=== PATIENT | male | born 1945 | race Caucasian/White ===

== ENCOUNTER 2018-04-09 07:43 | Day surgery (SDC) | payer MEDICARE ==
[~2018-04-09] VITALS: Ht 190.5 cm; Wt 112.4 kg
[2018-04-09] MEDS ORDERED: SODIUM CHLORIDE 0.9% 1,000 ML IV SCH (09:02)
[2018-04-09 09:06] VITALS: BP 143/84
[2018-04-09] MEDS ORDERED: CIPROFLOXACIN/PMX 400MG/200ML 200 ML IV ONE (09:30)
[2018-04-09] MEDS ORDERED: PRAMIPEXOLE PO (09:35)
[2018-04-09] MEDS ORDERED: VITAMIN D PO (09:35)
[2018-04-09] MEDS ORDERED: LEVO100T5 PO (09:35)
[2018-04-09] MEDS ORDERED: FERROUS SULFATE PO (09:35)
[2018-04-09] MEDS ORDERED: METF500T17 PO (09:35)
[2018-04-09] MEDS ORDERED: MUCINEX PO (09:35)
[2018-04-09] MEDS ORDERED: PANTOPRAZOLE PO (09:35)
[2018-04-09] MEDS ORDERED: JOINT FORMULA PO (09:35)
[2018-04-09] MEDS ORDERED: CARB1TAB47 PO (09:35)
[2018-04-09] MEDS ORDERED: CALMOSEPTINE TP (09:35)
[2018-04-09] MEDS ORDERED: ALBUTEROL INHALER INH (09:35)
[2018-04-09] MEDS ORDERED: CALC400T5 PO (09:35)
[2018-04-09] MEDS ORDERED: LIDOCAINE-MPF 2%, 2ML ONE (10:38)
[2018-04-09] MEDS ORDERED: MIDAZOLAM 1 MG/ML, 5ML ONE (10:54)
[2018-04-09] MEDS ORDERED: NALOXONE 1 MG/ML, 2ML ONE (10:54)
[2018-04-09] MEDS ORDERED: FENTANYL PF 100 MCG/2ML ONE (10:54)
[2018-04-09] MEDS ORDERED: FLUMAZENIL 0.1 MG/1 ML, 5ML ONE (10:54)
== END 2018-04-09 13:20 | disposition home or self-care (01) ==
LOC: OUT 07:43
PROVIDERS: ATTEND Urology
DX: R33.8 Other retention of urine (principal); K21.9 Gastro-esophageal reflux disease without esophagitis; N40.0 Benign prostatic hyperplasia without lower urinary tract symptoms; J44.9 Chronic obstructive pulmonary disease, unspecified; Z87.440 Personal history of urinary (tract) infections; Z98.890 Other specified postprocedural states
CPT/HCPCS: 51102; 75989; 76942; 99156; 99157; C1725; C1769; J0744; J2250; J3010; J3490; J7030; J2310